=== PATIENT | female | born 1965 | race Caucasian/White ===

== ENCOUNTER → 2022-02-23 16:52 | Outpatient (CLI) | payer OTHER, SELFPAY ==
--- NOTE | ~2022-02-23 | MR_ITS ---
EXAMINATION: MR knee LT wo con DATE: 02/23/2022 17:56 INDICATION: Injured knee while cutting grass 5 weeks ago. TECHNIQUE: Magnetic resonance imaging (MRI) of the left knee was performed without intravenous contra st. Sequences included axial PD-weighted FS FSE, coronal PD-weighted FSE and PD-weighted FS FSE, sagi ttal PD-weighted FSE, and sagittal T2-weighted FS FSE. COMPARISON: None. FINDINGS: Medial compartment: Vertical tear of the meniscal root ligament with mild medial extrusion. Extensive degenerative signal change at the junction of the posterior horn and body. Possible focal oblique undersurface tear of t he meniscal body, perhaps with intervening granulation tissue. Moderate diffuse cartilage thinning. M ild osteophytosis. Lateral compartment: Meniscus intact. Mild diffuse cartilage thinning. Mild osteophytosis. Patellofemoral compartment: Irregular full-thickness cartilage loss along the median ridge and medial facet. Mild osteophytosis. Ligaments and tendons: The ACL, PCL, MCL, and LCL are intact. Remaining flexor and extensor tendons are intact. Fluid: Small volume joint fluid. Osseous/other: No suspicious focal or diffuse marrow signal. IMPRESSION: 1. Vertical tear of the posterior horn, medial meniscus at the meniscal root ligament, with mild medi al extrusion. 2. Oblique undersurface tear at the medial meniscal body, with evidence of partial healing. 3. Tricompartmental osteoarthritis, moderate in the medial compartment. Reviewed, dictated and finalized at location K. [facility] [employer] IMPRESSION: 1. Vertical tear of the posterior horn, medial meniscus at the meniscal root li gament, with mild medial extrusion. 2. Oblique undersurface tear at the medial meniscal body, with evidence of part ial healing. 3. Tricompartmental osteoarthritis, moderate in the medial compartment.
== END ==
PROVIDERS: PCP Orthopaedic Surgery; Visit Provider Orthopaedic Surgery
DX: S83.242A Other tear of medial meniscus, current injury, left knee, initial encounter (principal); M17.12 Unilateral primary osteoarthritis, left knee; X58.XXXA Exposure to other specified factors, initial encounter
CPT/HCPCS: 73721